=== PATIENT | male | born 1995 | race Caucasian/White ===

== ENCOUNTER 2018-09-25 20:45 | Emergency (ER) | payer OTHER ==
[~2018-09-25] VITALS: Ht 180.3 cm; Wt 90.7 kg
[2018-09-25] MEDS ORDERED: PROAIR HFA8.5 GM INH (20:54)
[2018-09-25] MEDS ORDERED: SYMBICORT160 MCG/4. INH ×2 (20:54→22:06)
[2018-09-25] MEDS ORDERED: PREDNISONE 20 M20 MG PO (22:06)
[2018-09-25] MEDS ORDERED: PROVENTIL HFA6.7 G1 INH (22:06)
[2018-09-25 22:40] VITALS: BP 120/60
== END 2018-09-25 23:04 | disposition home or self-care (01) ==
LOC: ER 20:45
DX: J45.901 Unspecified asthma with (acute) exacerbation (principal)